=== PATIENT | female | born 1970 | race Caucasian/White ===

== ENCOUNTER 2021-05-10 09:06 | Outpatient (CLI) | payer OTHER, SELFPAY ==
--- NOTE | ~2021-05-10 | XR_ITS ---
EXAMINATION: XR lumbar spine 2-3V DATE: 05/10/2021 09:24 INDICATION: Acute low back pain TECHNIQUE: Anteroposterior and lateral views of the lumbar spine, and cone-down lateral view of the l umbosacral junction were obtained. COMPARISON: 02/15/2011 FINDINGS: There is no fracture, dislocation, or subluxation. The vertebral body heights are maintaine d. There is mild loss of intervertebral disc space height at L5-S1. Small degenerative osteophytes pr oject from the anterior endplates of multiple vertebral bodies. Moderate facet osteoarthritis is note d at L5-S1. There is mild lumbar dextrocurvature. Phleboliths are noted in pelvis. There is calcified atherosclerosis of the aorta. IMPRESSION: 1. Mild lumbar spondylosis without acute findings. Reviewed, dictated and finalized at location B.
== END 2021-05-10 09:07 | disposition home or self-care (01) ==
PROVIDERS: PCP Family Medicine; Visit Provider Physician Assistant
DX: M54.9 Dorsalgia, unspecified (principal); M47.816 Spondylosis without myelopathy or radiculopathy, lumbar region
CPT/HCPCS: 72100

== ENCOUNTER 2022-10-10 07:47 | Outpatient (CLI) | payer OTHER, SELFPAY ==
[2022-10-10 08:33] LABS: Basophils Absolute Auto 0.1 K/mm3 (0.0-0.1); Basophils Percent Auto 0.7 % (0.2-1.2); Eosinophils Absolute Auto 0.3 K/mm3 (0-0.3); Eosinophils Percent Auto 4.6 % (0-4.4); Hemoglobin 13.9 g/dL (12.0-15.0); Immature Granulocyte Absolute 0.01 K/mm3 (0.00-0.031); Immature Granulocyte Percent A 0.1 % (0-0.5); Lymphocytes Percent Auto 33.8 % (18.3-44.2); Mean Corpuscular HGB Conc 33.1 g/dl (32-36); Mean Corpuscular Hemoglobin 30.8 pg (26-34); Mean Corpuscular Volume 92.9 fl (80-100); Mean Platelet Volume 9.8 fl (7.4-10.4); Monocytes Absolute Auto 0.7 K/mm3 (0.1-0.6); Neutrophils Absolute Auto 3.8 K/mm3 (1.3-6.7); Neutrophils Percent Auto 50.8 % (45.5-73.1); Platelet Count Result 351 k/mm3 (150-375); Red Blood Count 4.52 M/mm3 (4.2-5.4); Red Cell Distribution Width 13.2 % (11.5-14.5); White Blood Count 7.4 K/mm3 (4.5-10.0)
[2022-10-10 08:40] LABS: Alanine Aminotransferase 23 U/L (6-35); Albumin Level 4.5 g/dL (3.5-5.1); Alkaline Phosphatase 61 U/L (38-126); Anion Gap 3 mmol/L (8-16); Aspartate Amino Transferase 26 U/L (14-36); Bilirubin,Total 0.2 mg/dL (0.2-1.3); Blood Urea Nitrogen 13 mg/dL (7-17); Calcium 8.9 mg/dL (8.4-10.2); Carbon Dioxide 27 mmol/L (22-30); Chloride 107 mmol/L (98-107); Cholesterol 220 mg/dL (0-200); Estimated Glomerular Filt Rate > 60; Glucose 98 mg/dL (65-110); HDL Direct 47 mg/dL; Potassium 4.1 mmol/L (3.4-5.0); Sodium 137 mmol/L (137-145); Triglycerides 87 mg/dL (<150)
[2022-10-10 08:51] LABS: LDL Cholesterol Direct 120 mg/dL
== END 2022-10-10 07:48 | disposition home or self-care (01) ==
LOC: ANHLAB 07:49
PROVIDERS: PCP Family Medicine; Visit Provider Physician Assistant
DX: Z00.00 Encounter for general adult medical examination without abnormal findings (principal); F32.9 Major depressive disorder, single episode, unspecified; K58.9 Irritable bowel syndrome, unspecified; F17.210 Nicotine dependence, cigarettes, uncomplicated; N95.1 Menopausal and female climacteric states
CPT/HCPCS: 36415; 80053; 80061; 84443; 85025

== ENCOUNTER 2022-12-14 07:46 | Outpatient (CLI) | payer OTHER, SELFPAY ==
--- NOTE | ~2022-12-14 | MM_ITS ---
EXAMINATION: MM screening hector BI w enio HISTORY: Screening TECHNIQUE: Craniocaudal and mediolateral oblique 3-D tomosynthesis images were obtained and synthetic 2-D images were generated. CAD analysis was submitted and interpreted. COMPARISON: No prior mammogram is available for comparison at this institution. BREAST PARENCHYMAL COMPOSITION: There are scattered areas of fibroglandular density. FINDINGS: There is no evidence of suspicious mass, calcification, or architectural distortion to sugg est malignancy in either breast. There has been no suspicious interval change. IMPRESSION: 1. No mammographic evidence of malignancy. 2. Recommend routine screening mammography in one year. BI-RADS Category 1: Negative Reviewed, dictated and finalized at location A. ENGINE MECHANIC
== END 2022-12-14 07:47 | disposition home or self-care (01) ==
LOC: ANHIMG 07:48
PROVIDERS: PCP Family Medicine; Visit Provider Physician Assistant
DX: Z12.31 Encounter for screening mammogram for malignant neoplasm of breast (principal)
CPT/HCPCS: 77063; 77067

== ENCOUNTER → 2023-04-25 11:43 | Outpatient (CLI) | payer OTHER, SELFPAY ==
--- NOTE | ~2023-04-25 | CT_ITS ---
EXAMINATION: CT lung screening DATE: 04/25/2023 11:54 INDICATION: Lung cancer screening. TECHNIQUE: Computed tomography (CT) of the chest was performed without intravenous contrast. The dose -length product was 71.88 mGy-cm. Automated exposure control and iterative reconstruction technique w ere employed. COMPARISON: None FINDINGS: Heart size is normal. No thoracic lymphadenopathy. No significant pleural or pericardial ef fusion. The upper abdomen is unremarkable. Mild emphysema. No endobronchial lesions. No pneumothorax. There is a 5 mm right middle lobe nodule, image 65. There are small additional right middle lobe nod ules measuring 3 mm or less. There is a 3 mm pleural-based right upper lobe nodule, image 36. There i s a 3 mm nodule in the right lung base. No endobronchial lesion. No pneumothorax. No acute osseous ab normality. Mild thoracic spondylosis. No focal lytic or blastic lesions. IMPRESSION: 1. Lung-RADS category 2: Benign appearance or behavior. Continue annual screening with noncontrast lo w-dose chest CT in 12 months. Reviewed, dictated and finalized at location L. IMPRESSION: 1. Lung-RADS category 2: Benign appearance or behavior. Continue annual screeni ng with noncontrast low-dose chest CT in 12 months.
== END ==
PROVIDERS: PCP Physician Assistant; Visit Provider Physician Assistant
DX: Z12.2 Encounter for screening for malignant neoplasm of respiratory organs (principal); F17.210 Nicotine dependence, cigarettes, uncomplicated
CPT/HCPCS: 71271

== ENCOUNTER 2024-04-03 09:17 | Outpatient (CLI) | payer OTHER, SELFPAY ==
--- NOTE | ~2024-04-03 | XR_ITS ---
EXAMINATION: XR abdomen/kub 1V DATE: 04/03/2024 09:39 INDICATION: Diarrhea. Bloating. TECHNIQUE: A supine view of the abdomen on 2 radiographs was obtained. COMPARISON: None. FINDINGS: There are no dilated loops of bowel. There is a paucity of stool in the colon. There are ph leboliths in the pelvis. IMPRESSION: 1. Normal bowel gas pattern. Reviewed, dictated and finalized at location A.
[2024-04-03 09:42] LABS: Hematocrit 43.8 % (37.0-47.0); Hemoglobin 14.6 g/dL (12.0-15.0); Mean Corpuscular HGB Conc 33.3 g/dl (32-36); Mean Platelet Volume 10.1 fl (7.4-10.4); Platelet Count Result 348 k/mm3 (150-375); Red Blood Count 4.71 M/mm3 (4.2-5.4); Red Cell Distribution Width 13.2 % (11.5-14.5); White Blood Count 9.1 K/mm3 (4.5-10.0)
[2024-04-03 09:56] LABS: Alanine Aminotransferase 21 U/L (6-35); Albumin Level 4.9 g/dL (3.5-5.1); Alkaline Phosphatase 78 U/L (38-126); Anion Gap 8 mmol/L (4-12); Aspartate Amino Transferase 24 U/L (14-36); Bilirubin,Total 0.4 mg/dL (0.2-1.3); Blood Urea Nitrogen 13 mg/dL (7-17); CRP 0.8 mg/dL (<1.0); Calcium 9.7 mg/dL (8.4-10.2); Carbon Dioxide 25 mmol/L (22-30); Chloride 108 mmol/L (98-107); Estimated Glomerular Filt Rate > 60; Glucose 105 mg/dL (65-110); Potassium 4.4 mmol/L (3.4-5.0); Sodium 141 mmol/L (137-145)
[2024-04-03 10:41] LABS: Erythrocyte Sedimentation Rate 18 mm/hr (0-20)
[2024-04-09 03:34] LABS: Immunoglobulin A 210 mg/dL (47-310); TTG IGA AB <1.0 U/mL
== END 2024-04-03 09:18 | disposition home or self-care (01) ==
PROVIDERS: PCP Family Medicine; Visit Provider Nurse Practitioner
DX: K52.9 Noninfective gastroenteritis and colitis, unspecified (principal); R14.0 Abdominal distension (gaseous); R10.9 Unspecified abdominal pain; R19.12 Hyperactive bowel sounds
CPT/HCPCS: 36415; 74018; 80053; 82784; 84443; 85027; 85652; 86140; 86364

== ENCOUNTER 2024-04-04 07:08 | Outpatient (CLI) | payer OTHER, SELFPAY ==
[2024-04-04 09:04] LABS: IFOB Positive Control Positive; Immunochemical Fecal Occult Bl Negative (N)
[2024-04-04 09:37] LABS: Toxigenic C. Diff NEGATIVE (NEGATIVE)
[2024-04-11 21:38] LABS: Calprotectin, Stool 10 mcg/g
[2024-04-13 18:53] LABS: Pancreatic Elastase, Stool >500 mcg/g
== END 2024-04-04 07:09 | disposition home or self-care (01) ==
LOC: ANHLAB 07:10
PROVIDERS: PCP Family Medicine; Referring Provider Nurse Practitioner; Visit Provider Physician Assistant
DX: K52.9 Noninfective gastroenteritis and colitis, unspecified (principal); R14.0 Abdominal distension (gaseous); R19.12 Hyperactive bowel sounds
CPT/HCPCS: 82274; 82653; 83993; 87045; 87269; 87427; 87449; 87493

== ENCOUNTER 2024-05-13 05:52 | Day surgery (SDC) | payer OTHER, SELFPAY ==
[2024-04-10 07:37] VITALS: BMI 24.0
[2024-05-13 06:43] VITALS: BP 121/76; PULSE 75; RESP 16; TEMP 36.6; O2SAT 100; BMI 23.3
[2024-05-13] MEDS: LACTATED RINGERS 1,000 ML 150 ML IV CONT (06:56)
--- NOTE | 2024-05-13 07:02 | WPDANESEPPF ---
Anes - Initial Pre Proc Eval Procedure: Operation Date: 05/13/24 07:30 Proposed Procedures p Diagnostic Colonoscopy - Blue Samano MD Date/Time: 05/13/24 07:02 Surgeon: Blue Samano MD Pre Op Diagnosis: Noninfective Gastroenteritis and Colitis, ABD Pain Patient Data Age: 53 Gender: F Height: 1.6 m Weight: 59.7 kg Last Vital Signs Temp 36.6 C 05/13/24 06:43 Pulse 75 05/13/24 06:43 Resp 16 05/13/24 06:43 BP 121/76 05/13/24 06:43 Pulse Ox 100 05/13/24 06:43 O2 Del Method Room Air 05/13/24 06:43 Allergies Allergy/AdvReac Type Severity Reaction Status Date / Time No Known Allergies Allergy Unknown N/A Verified 05/13/24 06:41 Home Medications Medication Instructions Recorded Confirmed Type hydroxyzine HCl 10 mg tablet 10 mg PO TID PRN itching #90 tabs 08/08/22 05/13/24 Rx azelastine 137 mcg (0.1 %) nasal 1 spray intranasal Q12H #30 mL 12/28/22 05/13/24 Rx spray fluticasone propionate 50 1 spray intranasal DAILY #16 grams 12/28/22 05/13/24 Rx mcg/actuation nasal spray,suspension fluoxetine 20 mg capsule 20 mg PO DAILY #90 caps 04/22/23 05/13/24 Rx oxybutynin chloride 5 mg 5 mg PO DAILY #30 tabs 04/22/23 05/13/24 Rx tablet,extended release 24 hr triamcinolone acetonide 0.1 % See Rx Instructions .Route 06/18/23 05/13/24 Rx topical cream .COMPLEX #15 grams hyoscyamine sulfate 0.125 mg 0.125 mg PO .every 6 hours PRN 04/03/24 05/13/24 Rx tablet (Levsin) abdominal pain #120 tabs Patient hx anesthesia problems: none Family hx anesthesia problems: none Results Review: All pre-operative results and documents have been reviewed as part of the pre-operative evaluation. [facility] Past Medical History Medical History Acute non-recurrent maxillary sinusitis Colon cancer screening COPD exacerbation Endometriosis Fibromyalgia Fibromyalgia syndrome Lipid screening MDD (major depressive disorder) MDD (major depressive disorder), recurrent episode, moderate Rheumatoid arthritis involving multiple sites with positive rheumatoid factor Sleep disorder Smoking Spondylosis of cervical spine with radiculopathy Undifferentiated inflammatory arthritis URI, acute Surgical History Surgical History H/O excision of lamina of cervical vertebra for decompression of spinal cord History of rotator cuff surgery S/P ANDREI-BSO (total abdominal hysterectomy and bilateral salpingo-oophorectomy) Family History Family History Sibling Diabetes mellitus Father Heart disease Mother Non-Hodgkin lymphoma Social History Social History Social History: Smoking packs per day: 1 Smoking cigarettes per day: 20.0 Years smoked: 30 Smoking pack-years: 30.00 Smoking status: Current every day smoker Tobacco type: cigarettes Second hand tobacco smoke exposure: Yes Alcohol intake: current Alcohol use details: socially Substance use: current Substance use type: marijuana Other substance usage details: daily Lack of Transportation: No Lack of Food: Never True Current Housing: I Have Housing Concerned About Future Housing: No Difficulty Paying Gas/Electric Bills: No Difficulty Paying for Meds: No Currently Unemployed: No Education: Decline to Answer Difficulty w/ Childcare or Family Care: No Living arrangements: with family Occupation/Education: occupation Gender identity (if verbalized by the patient): Female Sexual Orientation (if Verbalized by the Patient): Straight or Heterosexual Anes - Eval Final PreProcedure Day of Procedure 05/13/24 07:02 Patient weight: normal Heart: regular rate and rhythm Lungs: clear to auscultation Airway: Mallampati scale class II Neurological: alert and oriented Last oral intake: >/=
--- NOTE | 2024-05-13 07:21 | PM.HPGS ---
History of Present Illness History of Present Illness Consent: Risks, benefits, and alternatives have been discussed and questions answered. Patient agrees to proceed with procedure. Chief complaint: Noninfective Gastroenteritis and Colitis, ABD Pain Narrative: Taylor Colby is a 53 year old female has a history of diarrhea. She has associated abdominal pain. Recently went to the emergency room in [place], [place]. A CT scan revealed that she had colitis. She was treated with antibiotics with significant improvement of diarrhea and abdominal pain. Patient does report some ongoing abdominal discomfort for this reason she is referred for follow-up colonoscopy. Colonoscopy 5 years ago in 2019 revealed several benign adenomatous colon polyps. His abdominal pain. Bowel habits have improved to some degree. Review of Systems Review of Systems: All systems reviewed & are unremarkable except as noted in HPI and below PMFSH Past Medical History Medical History Acute non-recurrent maxillary sinusitis Colon cancer screening COPD exacerbation Endometriosis Fibromyalgia Fibromyalgia syndrome Lipid screening MDD (major depressive disorder) MDD (major depressive disorder), recurrent episode, moderate Rheumatoid arthritis involving multiple sites with positive rheumatoid factor Sleep disorder Smoking Spondylosis of cervical spine with radiculopathy Undifferentiated inflammatory arthritis URI, acute Surgical History Surgical History H/O excision of lamina of cervical vertebra for decompression of spinal cord History of rotator cuff surgery S/P ANDREI-BSO (total abdominal hysterectomy and bilateral salpingo-oophorectomy) Family History Family History Sibling Diabetes mellitus Father Heart disease Mother Non-Hodgkin lymphoma Social History Social History Social History: Smoking packs per day: 1 Smoking cigarettes per day: 20.0 Years smoked: 30 Smoking pack-years: 30.00 Smoking status: Current every day smoker Tobacco type: cigarettes Second hand tobacco smoke exposure: Yes Alcohol intake: current Alcohol use details: socially Substance use: current Substance use type: marijuana Other substance usage details: daily Lack of Transportation: No Lack of Food: Never True Current Housing: I Have Housing Concerned About Future Housing: No Difficulty Paying Gas/Electric Bills: No Difficulty Paying for Meds: No Currently Unemployed: No Education: Decline to Answer Difficulty w/ Childcare or Family Care: No Living arrangements: with family Occupation/Education: occupation Gender identity (if verbalized by the patient): Female Sexual Orientation (if Verbalized by the Patient): Straight or Heterosexual Meds Home Medications and Allergies Home Medications Medication Instructions Recorded Confirmed Type hydroxyzine HCl 10 mg tablet 10 mg PO TID PRN itching #90 tabs 08/08/22 05/13/24 Rx azelastine 137 mcg (0.1 %) nasal 1 spray intranasal Q12H #30 mL 12/28/22 05/13/24 Rx spray fluticasone propionate 50 1 spray intranasal DAILY #16 grams 12/28/22 05/13/24 Rx mcg/actuation nasal spray,suspension fluoxetine 20 mg capsule 20 mg PO DAILY #90 caps 04/22/23 05/13/24 Rx oxybutynin chloride 5 mg 5 mg PO DAILY #30 tabs 04/22/23 05/13/24 Rx tablet,extended release 24 hr triamcinolone acetonide 0.1 % See Rx Instructions .Route 06/18/23 05/13/24 Rx topical cream .COMPLEX #15 grams hyoscyamine sulfate 0.125 mg 0.125 mg PO .every 6 hours PRN 04/03/24 05/13/24 Rx tablet (Levsin) abdominal pain #120 tabs Allergies Allergy/AdvReac Type Severity Reaction Status Date / Time No Known Allergies Allergy Unknown N/A Verified 05/13/24 06:41 Vital Signs Vital
[2024-05-13 07:53] VITALS: BP 108/70; PULSE 68; RESP 18; O2SAT 100
[2024-05-13 07:55] VITALS: BP 117/74; PULSE 61; RESP 18; O2SAT 100
[2024-05-13 08:05] VITALS: BP 113/74; PULSE 62; RESP 18; O2SAT 100
--- NOTE | 2024-05-13 08:17 | WPDANESPN ---
Anes - Prog Note Post-Op Date/Time: 05/13/24 08:17 Cardiovascular status: normal Respiratory status: normal Airway patency: baseline Mental status: baseline Post-Op hydration status: normal Vital Signs: Last Vital Signs Temp 36.6 C 05/13/24 06:43 Pulse 62 05/13/24 08:05 Resp 18 05/13/24 08:05 BP 113/74 05/13/24 08:05 Pulse Ox 100 05/13/24 08:05 O2 Del Method Room Air 05/13/24 08:05 Pain Score (VAS): 0/10 I/O: Intake & Output 05/12/24 05/13/24 05/13/24 23:59 07:59 15:59 Intake Total 600 100 Balance 600 100 Patient Feedback: Patient satisfied with anesthetic care.
== END 2024-05-13 08:20 | disposition home or self-care (01) ==
PROVIDERS: PCP Family Medicine; Visit Provider Internal Medicine Gastroenterology
PROC: 0DJD8ZZ Inspection of Lower Intestinal Tract, Via Natural or Artificial Opening Endoscopic (ICD-10-PCS; CPT 45378; principal; 2024-05-13 07:30)
DX: R19.7 Diarrhea, unspecified (principal); R10.84 Generalized abdominal pain; K57.30 Diverticulosis of large intestine without perforation or abscess without bleeding; K64.8 Other hemorrhoids
CPT/HCPCS: 45380

== ENCOUNTER 2024-05-13 07:00 | Outpatient (NON) | payer OTHER, SELFPAY | END 2024-05-13 07:01 | disposition home or self-care (01) | PROVIDERS: PCP Family Medicine; Visit Provider Internal Medicine Gastroenterology | DX: R19.7 Diarrhea, unspecified (principal) | CPT/HCPCS: 88305 ==

== ENCOUNTER 2024-07-01 14:30 | Outpatient (CLI) | payer OTHER, SELFPAY ==
--- NOTE | ~2024-07-01 | XR_ITS ---
XR_CERV2-3V_CR 07/01/2024 14:45 Indication: Neck pain Procedure: 3 view cervical spine Comparison: 01/12/2006 Findings: Stable changes of anterior cervical fusion at C4-6. No fracture or traumatic malalignment. Hardware intact. No prevertebral soft tissue swelling. Mild multilevel uncinate and facet hypertrophy . Lung apices are normal. Odontoid process is normal. There has been disc narrowing at C3-4 since fabio or examination. Impression: 1: Mild-moderate cervical spondylosis with development of disc narrowing at C3-4 since prior study. Reviewed, dictated and finalized at location B. Impression: 1: Mild-moderate cervical spondylosis with development of disc narrowing at C3- 4 since prior study.
--- NOTE | ~2024-07-01 | XR_ITS ---
EXAMINATION: XR thoracic spine 3V DATE: 07/01/2024 14:45 INDICATION: Right neck pain. TECHNIQUE: 3 views of thoracic spine were obtained. COMPARISON: Chest CT 04/25/2023 FINDINGS: There is 8 degrees levocurvature of thoracolumbar spine. There is mild chronic anterior wed ging of T12 vertebral body. There is decreased disc height at most levels, severe from T5-T6 through T9-T10. IMPRESSION: 1. Severe thoracic spondylosis. Reviewed, dictated and finalized at location A.
== END 2024-07-01 14:31 ==
LOC: MICIMG 14:32
PROVIDERS: PCP Family Medicine; Visit Provider Physician Assistant
DX: M47.894 Other spondylosis, thoracic region (principal); M47.892 Other spondylosis, cervical region
CPT/HCPCS: 72040; 72072

== ENCOUNTER 2024-10-09 09:32 | Outpatient (CLI) | payer OTHER, SELFPAY ==
--- NOTE | ~2024-10-09 | MR_ITS ---
EXAMINATION: MR cervical spine wo con DATE: 10/09/2024 09:59 INDICATION: Other spondylosis with radiculopathy. Neck pain. TECHNIQUE: Magnetic resonance imaging (MRI) of the cervical spine was performed without intravenous c ontrast. COMPARISON: Cervical spine radiographs 07/01/2024 FINDINGS: There is 3 mm anterolisthesis of C7 on T1. There are changes of anterior fusion procedure f rom C4 to C6 with healed interbody bone graft and anterior plate and screws. There is moderately decr eased disc height at C3-C4, severely decreased disc height at C6-C7, and mildly decreased disc height at C7-T1. There is increased T2-weighted signal intensity in the spinal cord at C3-C4, consistent wi th myelomalacia. The following disc levels are specifically discussed: C2-C3: The disc does not extend beyond the endplate margin. There is no uncovertebral joint osteoarth ritis. There is severe right and moderate left facet joint osteoarthritis. There is mild right neural foraminal stenosis. There is no central canal stenosis. C3-C4: The disc is bulging. There is severe bilateral uncovertebral joint osteoarthritis. There is se yulia bilateral facet joint osteoarthritis. There is moderate right and mild left neural foraminal stella nosis. There is severe central canal stenosis with ventral and dorsal indentation of the spinal cord. C4-C5: There is mild bilateral uncovertebral joint hypertrophy. There is no facet joint osteoarthriti s. There is no neural foraminal stenosis. There is no central canal stenosis. C5-C6: There is mild bilateral uncovertebral joint hypertrophy. There is no facet joint osteoarthriti s. There is no neural foraminal stenosis. There is no central canal stenosis. C6-C7: The disc is bulging. There is severe bilateral uncovertebral joint osteoarthritis. There is mo derate right and severe left facet joint osteoarthritis. There is mild right and moderate left neural foraminal stenosis. There is mild central canal stenosis. C7-T1: The disc does not extend beyond the endplate margin. There is moderate bilateral uncovertebral joint osteoarthritis. There is severe bilateral facet joint osteoarthritis. There is mild bilateral neural foraminal stenosis. There is no central canal stenosis. IMPRESSION: 1. Myelomalacia at C3-C4. 2. Severe cervical spondylosis. 3. Anterior fusion procedure from C4 to C6. Reviewed, dictated and finalized at location A. ER
== END 2024-10-09 09:33 | disposition home or self-care (01) ==
LOC: MICIMG 09:32
PROVIDERS: PCP Family Medicine; Visit Provider Physician Assistant
DX: M47.22 Other spondylosis with radiculopathy, cervical region (principal); G95.89 Other specified diseases of spinal cord; M43.02 Spondylolysis, cervical region; Z98.1 Arthrodesis status
CPT/HCPCS: 72141

== ENCOUNTER 2024-11-24 09:38 | Outpatient (CLI) | payer OTHER, SELFPAY ==
--- NOTE | 2024-11-24 11:00 | NEURO_ITS ---
Impression: # Complains of upper extremity pain and numbness. ? # Normal Nerve Conduction Study; No Carpal Tunnel Syndrome or ulnar neuropathy. ? # Needle/EMG exam mildly neurogenic in left Tricep. ? # Clinical correlation recommended. Nerve Conduction Studies Anti Sensory Summary Table ?Stim Site NR Peak (ms) P-T Amp (?V) Site1 Site2 Delta-P (ms) Dist (cm) Richie (m/s) Left Median Anti Sensory (2-3nd Digit) Wrist ? 2.7 34.9 Wrist 2-3nd Digit 2.7 14.0 52 Wrist ? 2.7 62.0 Wrist 2-3nd Digit 2.7 14.0 52 Right Median Anti Sensory (2-3nd Digit) Wrist ? 3.4 33.4 Wrist 2-3nd Digit 3.4 14.0 41 Wrist ? 3.0 16.3 Wrist 2-3nd Digit 3.4 14.0 41 Left Radial Anti Sensory (Base 1st Digit) Wrist ? 2.1 29.7 Wrist Base 1st Digit 2.1 0.0 Right Radial Anti Sensory (Base 1st Digit) Wrist ? 2.3 24.2 Wrist Base 1st Digit 2.3 0.0 Left Ulnar Anti Sensory (5th Digit) Wrist ? 2.5 53.8 Wrist 5th Digit 2.5 14.0 56 Right Ulnar Anti Sensory (5th Digit) Wrist ? 2.4 33.2 Wrist 5th Digit 2.4 14.0 58 Motor Summary Table ?Stim Site NR Onset (ms) O-P Amp (mV) Site1 Site2 Delta-0 (ms) Dist (cm) Richie (m/s) Left Median Motor (Abd Poll Brev) Wrist ? 3.0 4.5 Elbow Wrist 4.7 26.0 55 Elbow ? 7.7 3.7 Right Median Motor (Abd Poll Brev) Wrist ? 3.0 4.9 Elbow Wrist 5.1 26.0 51 Elbow ? 8.1 2.3 Left Ulnar Motor (Abd Dig Minimi) Wrist ? 2.6 6.8 A Elbow Wrist 5.1 28.0 55 A Elbow ? 7.7 5.4 Right Ulnar Motor (Abd Dig Minimi) Wrist ? 2.6 7.5 A Elbow Wrist 4.9 28.0 57 A Elbow ? 7.5 6.2 F Wave Studies ?NR F-Lat (ms) L-R F-Lat (ms) Left Median (Mrkrs) (Abd Poll Brev) ? 26.33 1.48 Right Median (Mrkrs) (Abd Poll Brev) ? 27.81 1.48 Left Ulnar (Mrkrs) (Abd Dig Min) ? 26.72 0.15 Right Ulnar (Mrkrs) (Abd Dig Min) ? 26.57 0.15 EMG ?Side Muscle Nerve Root Ins Act Fibs Amp Dur Recrt Comment Right 1stDorInt Ulnar C8-T1 Nml Nml Nml Nml Nml Right Ext Indicis Radial (Post Int) C7-8 Nml Nml Nml Nml Nml Right Ext Digitorum Radial (Post Int) C7-8 Nml Nml Nml Nml Nml Right BrachioRad Radial C5-6 Nml Nml Nml Nml Nml Right PronatorTeres Median C6-7 Nml Nml Nml Nml Nml Right Abd Poll Brev Median C8-T1 Nml Nml Nml Nml Nml Right ABD Dig Min Ulnar C8-T1 Nml Nml Nml Nml Nml Left 1stDorInt Ulnar C8-T1 Nml Nml Nml Nml Nml Left Ext Indicis Radial (Post Int) C7-8 Nml Nml Nml Nml Nml Left Ext Digitorum Radial (Post Int) C7-8 Nml Nml Nml Nml Nml Left BrachioRad Radial C5-6 Nml Nml Nml Nml Nml Left PronatorTeres Median C6-7 Nml Nml Nml Nml Nml Left Abd Poll Brev Median C8-T1 Nml Nml Nml Nml Nml Left ABD Dig Min Ulnar C8-T1 Nml Nml Nml Nml Nml Right Biceps Musculocut C5-6 Nml Nml Nml Nml Nml Right Triceps Radial C6-7-8 Nml Nml Nml Nml Nml Right Deltoid Axillary C5-6 Nml Nml Nml Nml Nml Left Biceps Musculocut C5-6 Nml Nml Nml Nml Nml Left Triceps Radial C6-7-8 Nml Nml Nml >12ms +1 Left Deltoid Axillary C5-6 Nml Nml Nml Nml Nml MTDD
== END 2024-11-24 09:39 | disposition home or self-care (01) ==
LOC: ANHNEURO 09:39
PROVIDERS: PCP Family Medicine; Visit Provider Physician Assistant
DX: R20.0 Anesthesia of skin (principal); R29.898 Other symptoms and signs involving the musculoskeletal system
CPT/HCPCS: 95886; 95911

== ENCOUNTER 2025-10-26 08:55 | Outpatient (CLI) | payer OTHER, SELFPAY ==
[2025-10-26 09:17] LABS: Hematocrit 43.1 % (37.0-47.0); Hemoglobin 14.3 g/dL (12.0-15.0); Immature Granulocyte Percent A 0.4 % (0-0.5); Lymphocytes Absolute Auto 2.97 K/mm3 (0.9-3.2); Mean Corpuscular HGB Conc 33.2 g/dl (32-36); Mean Corpuscular Hemoglobin 30.8 pg (26-34); Mean Corpuscular Volume 92.7 fl (80-100); Nucleated Red Blood Cells Absolute Auto 0.000 K/mm3 (0.0-0.012); Nucleated Red Blood Cells Perc 0.0 % (0.0-0.2); Platelet Count Result 365 k/mm3 (150-375); Red Blood Count 4.65 M/mm3 (4.2-5.4); White Blood Count 11.1 K/mm3 (4.5-10.0)
[2025-10-26 09:44] LABS: Alanine Aminotransferase 25 U/L (6-35); Albumin Level 4.6 g/dL (3.5-5.1); Alkaline Phosphatase 91 U/L (38-126); Anion Gap 7 mmol/L (4-12); Aspartate Amino Transferase 36 U/L (14-36); Bilirubin,Total 0.5 mg/dL (0.2-1.3); Blood Urea Nitrogen 12 mg/dL (7-17); Calcium 10.2 mg/dL (8.4-10.2); Carbon Dioxide 27 mmol/L (22-30); Chloride 110 mmol/L (98-107); Cholesterol 228 mg/dL (0-200); Estimated Glomerular Filt Rate > 60; Glucose 100 mg/dL (65-110); HDL Direct 48 mg/dL; Potassium 4.9 mmol/L (3.4-5.0); Sodium 144 mmol/L (137-145); Total Protein 8.5 g/dL (6.3-8.2); Triglycerides 137 mg/dL (<150)
--- OUTSIDE RECORDS SUMMARY | 2025-10-26 09:48 | XMS_ITS | Clinical Summary ---
Author Organization [facility] Address [address] [place] [id number] Care Team Providers Care Degree Clerk Name Role Phone Desi Huddleston Primary Care Provid er Allergies No known active allergies Medications celecoxib (CeleBREX) 200 mg capsule TAKE 1 CAPSULE BY MOUTH TWICE DAILY NEEDED FOR PAIN 10/06/2024 Active oxyBUTYnin XL (DITROPAN-XL) 5 mg 24 hr tablet Take 1 tablet (5 mg total) by mouth daily 09/11/2024 Active tiZANidine (ZANAFLEX) 2 mg tablet Take 1 tablet (2 mg total) by mouth 3 (three) times a day as needed for muscle spasms 09/11/2024 Active baclofen (LIORESAL) 10 mg tablet Take 1 tablet (10 mg total) by mouth 3 (three) times a day 90 tablet 10/29/2024 Active gabapentin (NEURONTIN) 100 mg capsule Take 1 capsule (100 mg total) by mouth 3 (three) times a day 90 capsule 1 10/29/2024 5 Active Active Problems Problem Noted Date Diagnosed Date Trochanteric bursitis 08/09/2016 Osteoarthritis 08/09/2016 Fibromyalgia 08/09/2016 Surgical History Surgery Date Site/Laterality Comments HYSTERECTOMY SPINE SURGERY Medical History Medical History Date Comments Anxiety Cervical stenosis (uterine cervix) Cervical disc disease Depression Diverticulitis of colon Kidney infection Disc disorder of lumbar region Lumbar stenosis Rheumatoid arthritis (HCC) Family History Medical History Relation Name Comments Heart disease Father Cancer Mother Relation Name Status Comments Father Mother Social History Tobacco Use Types Packs/Day Years Used Date Smoking Tobacco: Every Day Cigarettes Tobacco Cessation:Ready to Q uit: Not Asked; Counseling Given: Not Answered Comments Unknown Sex and Gender Information Value Date Recorded Sex Assigned at Not on file Legal Sex 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 Gender Identity Not on file Sexual Orientation Not on file Last Filed Vital Signs Vital Sign Reading Time Taken Comments Blood Pressure - - Pulse - - Temperature - - Respiratory Rate - - Oxygen Saturation - - Inhaled Oxygen Concentration - - Weight 62.1 kg (137 lb) 10/29/2024 9:13 AM INDUSTRIAL TRACTOR DRIVER Height 160 cm (5' 3) 10/29/2024 9:13 AM INDUSTRIAL TRACTOR DRIVER Body Mass Index 24.27 10/29/2024 9:13 AM INDUSTRIAL TRACTOR DRIVER Plan of Treatment Health Maintenance Due Date Last Done Comments Breast Cancer Screening-Mammogram 1969 Colon Cancer Screening-Colonoscopy 1969 Depression Screening 1969 Hepatitis C Screening 1969 DTaP/Tdap/Td Vaccine (1 - Tdap) 1980 Hepatitis B Screening 1987 Regular Well Visit/Exam 18-64 1987 Pneumococcal vaccine <65 (1 of 2 - PCV) 1988 Zoster Vaccine (1 of 2) 2019 Covid-19 Vaccine (3 - 2024- season) 2025, 06/05/2021 Influenza Vaccine (#1) 2025 Insurance [facility] [employer] Care Teams Degree Clerk Relationship Specialty Start Date End Date Desi Huddleston [place] [address] [facility] [address] [place] [address] PCP - General Physician Yard Driver 10/15/24
--- OUTSIDE RECORDS SUMMARY | 2025-10-26 09:48 | XMS_ITS | Clinical Summary ---
Author Organization [facility] Address [address] [place] [address] Care Team Providers Care Computational Biologist Name Role Phone Elenita Mckenzie MD Primary Care Provider + Source Comments [facility],non-owned Affiliates and Associated Physician Practices is amultiple site organization consisting of ambulatory clinics and hospital sitesin [place], [place] and [place]. This disclosure is being madepursuant to the Care Everywhere program and may not contain all information available regarding this patient. Last updated 18.[facility] Allergies No known active allergies Medications * Be aware that medications may not be up to date on this document. Alwaysverify current medications with the patient. ketorolac 0.5% (ACULAR) 0.5 % ophthalmic solution 2 6 Active predniSONE (DELTASONE) 2.5 MG tablet 3-4 in the morning for inflammation 120 Tab 5 6 Active traZODone (DESYREL) 100 MG tablet Take 1 Tab by mouth at bedtime 30 Tab 3 6 Active gabapentin (NEURONTIN) 800 MG tablet Take 800 mg by mouth Take 1 QAM and 2 QHS Active zolpidem (AMBIEN) 10 MG tablet Take 1 Tab by mouth nightly as needed for Insomnia 30 Tab 3 7 Active citalopram (CELEXA) 40 MG tablet TAKE 1 TABLET BY MOUTH EVERY DAY 90 Tab 1 7 Active gabapentin (NEURONTIN) 800 MG tablet TAKE 1 TABLET BY MOUTH EVERY MORNING AND 2 TABLETS EVERY NIGHT AT BEDTIME 270 Tab 1 7 Active Active Problems Problem Noted Date Diagnosed Date Fibromyalgia 08/09/2016 Osteoarthritis 08/09/2016 spinal enthesopathy jessica bursitis 08/09/2016 Resolved Problems Problem Noted Date Diagnosed Date Resolved Date Fibromyalgia 06/07/2016 08/09/2016 Family History Medical History Relation Name Comments Cancer Other Diabetes Other Relation Name Status Comments Other Social History Tobacco Use Types Packs/Day Years Used Date Smoking Tobacco: Some Days Smokeless Tobacco: Never Alcohol Use Standard Drinks/Week Comments No 0 (1 standard drink = 0.6 oz pur e alcohol) Comments No Sex and Gender Information Value Date Recorded Sex Assigned at Not on file Legal Sex Female 2:17 PM BUNDLE BREAKER Gender Identity Not on file Sexual Orientation Not on file Last Filed Vital Signs Vital Sign Reading Time Taken Comments Blood Pressure 102/73 11/29/2016 3:43 PM BUNDLE BREAKER Pulse 80 11/29/2016 3:43 PM BUNDLE BREAKER Temperature - - Respiratory Rate - - Oxygen Saturation 97% 11/29/2016 3:43 PM BUNDLE BREAKER Inhaled Oxygen Concentration - - Weight 61.6 kg (135 lb 12.8 oz) 11/29/2016 3:43 PM BUNDLE BREAKER Height 162.6 cm (5' 4) 11/29/2016 3:43 PM BUNDLE BREAKER Body Mass Index 23.31 11/29/2016 3:43 PM BUNDLE BREAKER Plan of Treatment Health Maintenance Due Date Last Done Comments COLOGUARD (AGES 45-75) - COL ON CA SCREENING 1969 COLON MONITORING 1969 COLONOSCOPY - COLON CA SCREENING 1969 CT COLONOGRAPHY - COLON CA SCREENING 1969 Colorectal Cancer Screening 1969 FIT - COLON CA SCREENING 1969 FLEX SIG - COLON CA SCREENING 1969 LIPID TESTING 1969 MAMMOGRAM 1969 HIV SCREENING 1984 HEPATITIS C SCREENING 06/12/1987 DTAP/TDAP/TD VACCINES (1 - Tdap) 1988 HEPATITIS B VACCINE (1 of 3 - 19+ 3-dose series) 1988 PNEUMOCOCCAL VACCINE 50+ (1 of 2 - PCV) 1988 ZOSTER VACCINE (1 of 2) 2019 DEPRESSION SCREENING 11/11/2024 COVID-19 VACCINE (1 - 2024-2 6 season) 2025 INFLUENZA VACCINE (#1) 2025 HIB VACCINE Aged Out No longer eligi ble based on patient's age to complete this topic HPV VACCINE Aged Out No longer eligi ble based on patient's age to complete this topic MENINGOCOCCAL (Group B) VACC INE SHARED DECISION-MAKING Aged Out No longer eligibl e based on patient's age to complete this topic MENINGOCOCCAL GROUPS A/C/Y/W VACCINE Aged Out No longer eligible b ased on patient's age to complete this topic Insurance [facility] Address: [facility] [address] [place] [address] CIG * Guarantor: TAYLOR STROUD Account Type Relation to Patient Date of Phone Billing Address Personal/Family [address] [place] [address] CIG * Guarantor: TAYLOR STROUD Account Type Relation to Patient Date of Phone Billing Address Personal/Family [address] [place] [address] [place] [address] CIG * Guarantor: TAYLOR STROUD Account Type Relation to Patient Date of Phone Billing Address Personal/Family [address] [place], [place] [address] [address] CIG Care Teams Computational Biologist Relationship Specialty Start Date End Date Elenita Mckenzie MD [address] [place] [address] PCP - General 09/03/19
--- OUTSIDE RECORDS SUMMARY | 2025-10-26 09:48 | XMS_ITS | Clinical Summary ---
Author Organization [facility] Address [address] [place] [address] Care Team Providers Care Info Specialist Name Role Phone Elenita Mckenzie MD Primary Care Provider [phone] Allergies No known active allergies Medications Cyanocobalamin (B-12) 2000 MCG Tab Active vitamin D3, cholecalciferol , 125 mcg capsule Take 1 capsule (125 mcg total) by mouth daily. Active multi vitamin/mineral s (THERA-M ENHANCED) tablet Take 1 tablet by mouth daily. Active FLUoxetine (PROZAC) 20 MG capsule Take 1 capsule (20 mg total) by mouth daily. Active oxybutynin (DITROPAN) 5 MG tablet Take 1 tablet (5 mg total) by mouth 3 (three) times daily. Active dicyclomine (BENTYL) 10 MG capsule Take 1 capsule (10 mg total) by mouth 4 (four) times daily before meals and nightly. 40 capsule 01/10/2024 Active HYDROcodone-rowena taminophen (NORCO) 5-325 MG tabletIndicatio ns:Acute Pain < 3 Day Supply Take 1 tablet by mouth every 6 (six) hours as needed for Pain. Indications: Acute Pain < 3 Day Supply 12 tablet 01/10/2024 Active Social History Tobacco Use Types Packs/Day Years Used Date Smoking Tobacco: Every Day Cigarettes Smokeless Tobacco: Never Tobacco Cessation:Ready to Q uit: Not Asked; Counseling Given: Not Answered Alcohol Use Standard Drinks/Week Comments Yes 0 (1 standard drink = 0.6 oz pur e alcohol) socially Comments No Sex and Gender Information Value Date Recorded Sex Assigned at Not on file Legal Sex Female 8:08 PM CDT Gender Identity Not on file Sexual Orientation Not on file Last Filed Vital Signs Vital Sign Reading Time Taken Comments Blood Pressure 112/76 01/10/2024 9:00 PM STOCK CHASER Pulse 64 01/10/2024 9:00 PM STOCK CHASER Temperature 36.6 C (97.8 F) 01/10/2024 9:00 PM STOCK CHASER Respiratory Rate 18 01/10/2024 9:00 PM STOCK CHASER Oxygen Saturation 98% 01/10/2024 9:00 PM STOCK CHASER Inhaled Oxygen Concentration - - Weight 59 kg (130 lb) 01/10/2024 6:45 PM STOCK CHASER Height 162.6 cm (5' 4) 01/10/2024 6:45 PM STOCK CHASER Body Mass Index 22.31 01/10/2024 6:45 PM STOCK CHASER Plan of Treatment Health Maintenance Due Date Last Done Comments Cervical Cancer Screening Pa p Smear (Age 30 to 64) Every 3 Years 1969 Colorectal Cancer Screening Colonoscopy (10 Years) 1969 Annual Physical 1972 Hepatitis C 1987 DTaP, Tdap and Td Vaccines ( 1 - Tdap) 1988 Hepatitis B Vaccines (1 of 3 - 19+ 3-dose series) 1988 Pneumococcal Vaccine: 50+ Years (1 of 2 - PCV) 1988 Cervical Cancer Screening Pa p with HPV Testing (Age 30 to 64) Every 5 Years 1999 Cervical Cancer Screening wi th HPV 1999 Mammogram Screening 2009 Zoster Vaccines (1 of 2) 2019 COVID-19 Vaccine (3 - 2024-2 6 season) 2025 07/03/2021, 06/05/2021 Influenza Adult (#1) 2025 Hepatitis A Vaccines Aged Out No long er eligible based on patient's age to complete this topic Meningococcal B Vaccine Aged Out No l onger eligible based on patient's age to complete this topic Meningococcal Vaccine Aged Out No dior rachana eligible based on patient's age to complete this topic RSV Immunizations Under 20 Months Aged Out No longer eligible b ased on patient's age to [place] [address] [facility] Care Teams Info Specialist Relationship Specialty Start Date End Date Elenita Mckenzie MD [address] [place] [address] PCP - General FAMILY PRACTICE 01/10/24
== END 2025-10-26 08:56 | disposition home or self-care (01) ==
PROVIDERS: PCP Family Medicine; Visit Provider Physician Assistant
DX: E78.00 Pure hypercholesterolemia, unspecified (principal); M47.22 Other spondylosis with radiculopathy, cervical region; F17.210 Nicotine dependence, cigarettes, uncomplicated
CPT/HCPCS: 36415; 80053; 80061; 85025